=== PATIENT | male | born 1955 | race African-American/Black ===

== ENCOUNTER 2016-09-07 17:41 | Emergency (ER) | payer OTHER | END 2016-09-07 20:44 | disposition home or self-care (01) | LOC: FER 17:41 | DX: M43.6 Torticollis (principal); R03.0 Elevated blood-pressure reading, without diagnosis of hypertension; Z87.19 Personal history of other diseases of the digestive system; Z85.79 Personal history of other malignant neoplasms of lymphoid, hematopoietic and related tissues | CPT/HCPCS: 72050; J1100; J1885 ==